=== PATIENT | female | born 1960 | race Caucasian/White ===

== ENCOUNTER 2017-05-13 06:54 | Day surgery (SDC) | payer BC ==
[~2017-05-13 06:54] MED LIST: Simethicone Drops 40 MG/0.6 ML 30 ML Bottle ONE
[2017-05-13] MEDS ORDERED: Lactated Ringers 1,000 ML IV SCH (07:00)
[2017-05-13] MEDS ORDERED: ceFAZolin 1 GM in Premix Bag 1 BAG IV ONE (07:35)
[2017-05-13] MEDS ORDERED: ePHEDrine 50 MG/ML SDV ONE (07:48)
[2017-05-13] MEDS ORDERED: Succinylcholine 200 MG/10 ML MDV ONE (07:48)
[2017-05-13] MEDS ORDERED: Lidocaine 2% 20 ML MDV ONE (07:48)
[2017-05-13] MEDS ORDERED: Phenylephrine 1% 10 MG/ML SDV ONE (07:48)
[2017-05-13] MEDS ORDERED: Simethicone Drops 40 MG/0.6 ML 30 ML Bottle ONE (08:30)
[2017-05-13 11:34] VITALS: BP 117/61
[2017-05-13] MEDS ORDERED: Lidocaine 2% 20 ML MDV INJECT ONE (16:59)
[2017-05-13] MEDS ORDERED: Propofol 1,000 MG/100 ML SDV IV ONE (16:59)
--- NOTE | 2017-05-14 11:16 | OR ---
DATE: 05/13/2017 PREOPERATIVE DIAGNOSIS: Questionable history of anemia, but mainly screening colonoscopy. POSTOPERATIVE DIAGNOSIS: Normal colonoscopy. PROCEDURE: Colonoscopy. ANESTHESIA: IV sedation. ESTIMATED BLOOD LOSS: None. BRIEF HISTORY: A 57-year-old female, who has had a left total shoulder done about 6 months ago and there was questionable anemia. Since that time, she has done well. She has had no bloody stools. We are therefore at the point where we are going to do a colonoscopy. I did give her a gram of Kefzol preoperatively. DESCRIPTION OF PROCEDURE: The patient was taken to the OR suite. IV sedation was begun and she was placed on her left side down. On perianal exam, there were several little skin tags, but otherwise on my rectal there was no other mass. I was able to begin the process of advancing the scope. She had a tortuous colon, but not redundant, and it took a little bit of doing to get out of the pelvis, but once I was able to get into the descending colon, I was able to fairly advance the scope without difficulty. Her stool prep was moderately good, and the stool that remained was liquid, so I had to take a fair amount of time to keep irrigating the liquid stool so I could see the mucosa. The ileocecal valve and the ascending colon were all without pathology as I did see only 1 diverticula throughout the colon. I did not see any polyps or signs of ischemia and everything else looked fine. Again, I had to irrigate a fair amount during the whole procedure because of the bowel prep, but I felt comfortable that we were able to get a good look. I attempted to do retroflexing of the scope, but was unsuccessful, but I was able to get a good look at the rest of the rectum. She tolerated the procedure well. [facility] /[id number]
== END 2017-05-13 11:20 | disposition home or self-care (01) ==
LOC: DL.ENDO 06:54
PROVIDERS: ATTEND Surgery
DX: Z12.11 Encounter for screening for malignant neoplasm of colon (principal); K57.30 Diverticulosis of large intestine without perforation or abscess without bleeding
CPT/HCPCS: 45378; A9270; J0690; J2704; J7120

== ENCOUNTER 2023-03-08 13:13 | Emergency (ER) | payer BC ==
[2023-03-08 13:42] VITALS: BP 127/111; PULSE 62
== END 2023-03-08 13:51 | disposition home or self-care (01) ==
LOC: DL.ED 13:13
DX: S01.01XA Laceration without foreign body of scalp, initial encounter (principal); W00.0XXA Fall on same level due to ice and snow, initial encounter
CPT/HCPCS: 12001; 99282; 99283

== ENCOUNTER 2025-04-01 05:52 | Day surgery (SDC) | payer BC ==
[2025-04-01] MEDS ORDERED: fentaNYL 100 MCG/2 ML SDV IV ONE (06:11)
[2025-04-01] MEDS ORDERED: Midazolam 1 MG/ML 2 ML SDV ONE (06:11)
[2025-04-01] MEDS ORDERED: fentaNYL 100 MCG/2 ML SDV ONE (06:11)
[2025-04-01] MEDS ORDERED: Midazolam 1 MG/ML 2 ML SDV IV ONE (06:11)
[2025-04-01] MEDS: Dextrose 5%-0.45% NaCl 1,000 ML IV SCH (07:01)
[2025-04-01] MEDS: fentaNYL 100 MCG/2 ML SDV IV ONE ×3 (07:22→07:33)
[2025-04-01] MEDS: Midazolam 1 MG/ML 2 ML SDV IV ONE ×7 (07:23→07:35)
[2025-04-01 08:38] VITALS: BP 107/65; PULSE 62
== END 2025-04-01 08:52 | disposition home or self-care (01) ==
LOC: DL.ENDO 05:52
PROVIDERS: ATTEND Internal Medicine Gastroenterology
DX: K64.4 Residual hemorrhoidal skin tags (principal)
CPT/HCPCS: 45378; J2250; J3010